=== PATIENT | male | born 1965 | race Caucasian/White ===

== ENCOUNTER 2019-12-22 03:28 | Inpatient (IN) ==
--- NOTE | 2019-12-22 03:39 | Emergency Department Note ---
ED Provider Note NAME: LUIS MYERS AGE: 54 SEX: M ARRIVES VIA: Walk-In INFORMANT: [Patient] ED PROVIDER(S): [Rosa M Joel DO] CHIEF COMPLAINT: [Vomiting and diarrhea] IMPRESSION: Acute kidney injury; vomiting and diarrhea PLAN: Disposition: Admitted to the hospital Condition: [Good] Outpatient prescription management: [none] MEDICAL DECISION MAKING: This is a 54-year-old male patient with a history of polycystic kidney disease who was evaluated in room B2 who presents to the emergency department complaini ng of vomiting and diarrhea. The patient had a sudden onset of the above and appears to be significantly dehydrated. He is receiving IV normal saline solution. He has a creatinine of 2.55. He believes that his normal creatinine is somewhere between 1.2-1.5. The patient was dry heaving and vomiting upon his initial presentation to the emergency department. He did have some chest discomfort with his excessive vomiting but that has since subsided. He did have some stool incontinence while here in the emergency department. The patient's symptoms started at 10 PM this evening. He described eating pierogies and drinking beer. There is no leukocytosis. I do believe the patient has signif icant dehydration as he also has an elevated H&H. Triage Nursing notes reviewed and agree with them. Vital Signs: reviewed and remarkable for hypertension. The patient has a history of polycystic kidney disease and suffers from hypertension. Patient was also dry heaving on presentation to the emergency department. Differential diagnosis: Foodborne illness, cardiac ischemia, STEMI, dehydration, renal insufficiency, hypertensive urgency, gastroenteritis, viral illness, ER treatment provided: IV normal saline; IV Zofran, IV labetalol, Diagnostics interpreted by me: ECG: Normal sinus rhythm at a rate of 85. No cardiac ischemia or ectopy Cardiac Monitoring: Normal sinus rhythm at a rate of 80 Laboratory studies: [See below] Imaging studies:None Consultation(s): Dr[facility] HPI: This is a 54-year-old male patient who presents to the emergency department complaining of vomiting and diarrhea. The patient developed those symptoms around 10 PM this evening. His first symptom was nausea and then vomiting. He developed some associated chest pain at that time. He then developed diarrhea and crampy abdominal pain. He then developed both vomiting and diarrhea at the same time. The patient admits that he ate some potato pierogies earlier in the evening along with a beer. He denies any known sick contacts. He does describe some chills. ROS: See above HPI for pertinent positives & negatives. A total of [10] systems reviewed and were otherwise negative. PAST MEDICAL HISTORY:Polycystic kidney disease and hypertension; Dominic -Parkinson-White with ablation PAST SURGICAL HISTORY:Multiple orthopedic surgeries including a right's shoulder surgery performed recently FAMILY HISTORY:[See Below] SOCIAL HISTORY:The patient is originally from [place] but lives in 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 Extraocular eye muscles are intact, and sclera are anicteric. Nose - moist nasal mucosa without discharge. Mouth - moist buccal mucosa. Oropharynx is nonerythematous and there is no tonsillar exudate or edema noted. Neck: Supple; no cervical lymphadenopathy or nuchal rigidity Heart: Regular rate and rhythm. There is a normal S1 and S2 with no murmurs, clicks, or gallops appreciated. Lungs: Clear to auscultation bilaterally with no wheezes, rales, or rhonchi. Abdomen: Soft, completely nontender, nondistended, with good bowel sounds. There are no palpable pulsatile masses or hepatosplenomegaly. There is no guarding, rigidity, or rebound noted. Extremities: No evidence of cyanosis, clubbing, or edema. There are easily palpable peripheral pulses. Skin: Cool and diaphoretic with good turgor and no rashes. ED COURSE: 0340: The patient was evaluated in room B2. A complete history and physical was performed. An order was placed for continuous cardiac monitoring. Patient was in a normal sinus rhythm at a rate of 86. An IV lock was initiated and labs were drawn as above. The patient was given 4 mg of IV Zofran. The patient was given 2 L of IV normal saline solution for obvious signs of dehydration. Patient was given 10 mg of IV labetalol for hypertension I rechecked the patient multiple times and he was able to drink clear liquids w ithout difficulty or further episodes of vomiting. I discussed the case with the [facility] Hospitalist and they will evaluate him for further management. Impression & Plan JANIA (acute kidney injury), Nausea vomiting and diarrhea, Hypertension Past Med/Surg History Social History (Updated 12/22/19 @ 05:57 by Jodee Araujo DO) Communication Ability: Effective Beliefs That Will Affect Care: None Current Living Situation: Spouse Feels Safe at Home: Yes Smoking Status: Never smoker Hx Alcohol Use: Yes Alcohol Intake Frequency: Holidays/Special Occasions Hx Substance Use: No Results & Data Vital Signs Vital Signs - 24 hr 12/22/19 03:32 12/22/19 03:50 12/22/19 03:55 Temperature 36.5 C Temperature Source Oral Pulse Rate 94 H Pulse Rate [Apical] 86 Pulse Rhythm [Apical] Regular Respiratory Rate 18 22 Respiratory Effort / Characteristics Non-Labored Spontaneous Non-Labored Respiratory Depth Normal Shallow Respiratory Pattern Blood Pressure 175/106 H Blood Pressure [Right Arm] 174/116 H Blood Pressure Mean 129 Blood Pressure Mean [Right Arm] 135 Pulse Oximetry 99 98 98 Oxygen Delivery Method Room Air Room Air Room Air Sepsis Recent Fever Within 48 Hours No Sepsis Action Taken by Nursing No Action Required 12/22/19 04:45 12/22/19 05:15 Temperature Temperature Source Pulse Rate Pulse Rate [Apical] 94 H 90 Pulse Rhythm [Apical] Regular Regular Respiratory Rate 16 16 Respiratory Effort / Characteristics Non-Labored Spontaneous Non-Labored Spontaneous Respiratory Depth Normal Normal Respiratory Pattern Regular Regular Blood Pressure Blood Pressure [Right Arm] 170/110 H 164/96 H Blood Pressure Mean Blood Pressure Mean [Right Arm] 130 118 Pulse Oximetry Oxygen Delivery Method Sepsis Recent Fever Within 48 Hours Sepsis Action Taken by Nursing Laboratory Data Result diagrams: 12/22/19 03:57 12/22/19 03:57 Lab Results 12/22/19 12/22/19 12/22/19 Range/Units 03:57 03:57 03:57 WBC 8.58 (4.8-10.8) K/uL RBC 6.44 H (4.7-6.1) M/uL Hgb 19.4 H (14.0-18.0) g/dL Hct 56.0 H (42-52) % MCV 87.0 (80-100) fL MCH 30.1 (25-34) pg MCHC 34.6 (32-36) g/dL RDW Std Deviation 45.1 (36.4-46.3) fL RDW Coeff of Rhina 14.2 (11.5-14.5) % Plt Count 204 (130-400) K/uL MPV 10.8 H (7.4-10.4) fL Immature Gran % (Auto) 0.2 % Neut % (Auto) 92.4 % Lymph % (Auto) 2.3 % Scott % (Auto) 3.4 % Eos % (Auto) 1.6 % Baso % (Auto) 0.1 % Immature Gran # (Auto) 0.02 (0.00-0.02) K/uL Neut # (Auto) 7.92 H (1.4-6.5) K/uL Lymph # (Auto) 0.20 L (1.2-3.4) K/uL [place] # (Auto) 0.29 (0.11-0.59) K/uL Eos # (Auto) 0.14 (0-0.5) K/uL Baso # (Auto) 0.01 (0-0.2) K/uL Sodium 140 (136-145) mmol/L Potassium 4.6 (3.5-5.1) mmol/L Chloride 110 H (98-107) mmol/L Carbon Dioxide 23 (21-32) mmol/L Anion Gap 7.0 (3-11) BUN 34 H (7-18) mg/dl Creatinine 2.55 H (0.6-1.4) mg/dl Est Cr Clr Drug Dosing 40.7 ml/min Est GFR ( Amer) 31.7 Est GFR (Non-Af Amer) 27.4 BUN/Creatinine Ratio 13.3 (10-20) Glucose 149 H (70-99) mg/dl Calcium 8.6 (8.5-10.1) mg/dl Phosphorus 2.1 L (2.5-4.9) mg/dl Magnesium (1.8-2.4) mg/dl Total Bilirubin 0.5 (0.2-1) mg/dl AST 31 (15-37) U/L ALT 36 (12-78) U/L Alkaline Phosphatase 93 (45-117) U/L Troponin I < 0.015 (0-0.045) ng/ml Total Protein 7.8 (6.4-8.2) gm/dl Albumin 3.7 (3.4-5.0) gm/dl Globulin 4.1 H (2.5-4.0) gm/dl Albumin/Globulin Ratio 0.9 (0.9-2) Lipase 291 (73-393) U/L Specimen Hemolysis Urine Color Urine Appearance (Clear) Urine pH (4.5-7.5) Ur Specific [place] (1.000-1.030) Urine Protein (Negative) Urine Glucose (UA) (Negative) Urine Ketones (Negative) Urine Blood (Negative) Urine Nitrite (Negative) Urine Bilirubin (Negative) Urine Urobilinogen (Negative) Ur Leukocyte Esterase (Negative) Urine WBC (Auto) (0-5) /hpf Urine RBC (Auto) (0-4) /hpf U Hyaline Cast (Auto) (0-5) /lpf U Epithel Cells (Auto) (0-5) /lpf Urine Bacteria (Auto) (Negative) 12/22/19 Range/Units 04:40 WBC (4.8-10.8) K/uL RBC (4.7-6.1) M/uL Hgb (14.0-18.0) g/dL Hct (42-52) % MCV (80-100) fL MCH (25-34) pg MCHC (32-36) g/dL RDW Std Deviation (36.4-46.3) fL RDW Coeff of Rhina (11.5-14.5) % Plt Count (130-400) K/uL MPV (7.4-10.4) fL Immature Gran % (Auto) % Neut % (Auto) % Lymph % (Auto) % Scott % (Auto) % Eos % (Auto) % Baso % (Auto) % Immature Gran # (Auto) (0.00-0.02) K/uL Neut # (Auto) (1.4-6.5) K/uL Lymph # (Auto) (1.2-3.4) K/uL [place] # (Auto) (0.11-0.59) K/uL Eos # (Auto) (0-0.5) K/uL Baso # (Auto) (0-0.2) K/uL Sodium (136-145) mmol/L Potassium (3.5-5.1) mmol/L Chloride (98-107) mmol/L Carbon Dioxide (21-32) mmol/L Anion Gap (3-11) BUN (7-18) mg/dl Creatinine (0.6-1.4) mg/dl Est Cr Clr Drug Dosing ml/min Est GFR ( Amer) Est GFR (Non-Af Amer) BUN/Creatinine Ratio (10-20) Glucose (70-99) mg/dl Calcium (8.5-10.1) mg/dl Phosphorus (2.5-4.9) mg/dl Magnesium (1.8-2.4) mg/dl Total Bilirubin (0.2-1) mg/dl AST (15-37) U/L ALT (12-78) U/L Alkaline Phosphatase (45-117) U/L Troponin I (0-0.045) ng/ml Total Protein (6.4-8.2) gm/dl Albumin (3.4-5.0) gm/dl Globulin (2.5-4.0) gm/dl Albumin/Globulin Ratio (0.9-2) Lipase (73-393) U/L Specimen Hemolysis Urine Color Yellow Urine Appearance Clear (Clear) Urine pH 5.5 (4.5-7.5) Ur Specific [place] 1.017 (1.000-1.030) Urine Protein 3+ H (Negative) Urine Glucose (UA) Negative (Negative) Urine Ketones Trace H (Negative) Urine Blood Trace H (Negative) Urine Nitrite Negative (Negative) Urine Bilirubin Negative (Negative) Urine Urobilinogen Negative (Negative) Ur Leukocyte Esterase Negative (Negative) Urine WBC (Auto) 0 (0-5) /hpf Urine RBC (Auto) 0-4 (0-4) /hpf U Hyaline Cast (Auto) 1-5 (0-5) /lpf U Epithel Cells (Auto) 0-5 (0-5) /lpf Urine Bacteria (Auto) Negative (Negative) Administered Medications Sodium Chloride (Nss 1000ml) 1,000 mls @ 125 mls/hr IV .Q8H MICHELLE Stop: 12/22/19 14:38 Last Admin: 12/22/19 06:55 Dose: 125 mls/hr Documented by: [id number] Labetalol HCl (Normodyne) 300 mg PO BID MICHELLE Stop: 01/21/20 08:59 Last Admin: 12/22/19 07:26 Dose: 300 mg Documented by: [id number] Nifedipine (Procardia Xl) 60 mg PO BID MICHELLE Stop: 01/21/20 08:59 Last Admin: 12/22/19 07:26 Dose: 60 mg Documented by: [id number] Ondansetron HCl (Zofran) 4 mg IV Q6H PRN PRN Reason: Nausea Stop: 01/21/20 06:38 Last Admin: 12/22/19 08:16 Dose: 4 mg Documented by: [id number] Discontinued Medications Sodium Chloride (Nss 1000ml) 1,000 mls @ 999 mls/hr IV .Q1H1M MICHELLE Stop: 12/22/19 05:00 Last Infusion: 12/22/19 05:14 Dose: 0 mls/hr Documented by: [id number] Admin: 12/22/19 03:57 Dose: 999 mls/hr Documented by: [id number] Sodium Chloride (Nss 1000ml) 1,000 mls @ 999 mls/hr IV .Q1H1M ONE Stop: 12/22/19 05:55 Last Admin: 12/22/19 05:13 Dose: 999 mls/hr Documented by: [id number] Labetalol HCl (Normodyne) 10 mg IV NOW STA Stop: 12/22/19 04:57 Last Admin: 12/22/19 05:13 Dose: 10 mg Documented by: [id number] Cosigned by: [id number] Ondansetron HCl (Zofran) Confirm Administered Dose 4 mg .ROUTE .STK-MED ONE Stop: 12/22/19 03:45 Last Admin: 12/22/19 03:45 Dose: 4 mg Documented by: [id number] Ondansetron HCl (Zofran) 4 mg IV NOW STA Stop: 12/22/19 03:53 Last Admin: 12/22/19 03:57 Dose: Not Given Documented by: [id number] Discharge Plan Visit Data *Final* Discharge Date/Time: 12/22/19 06:20 Chief Complaint: Vomiting Stated Complaint: VOMITING,DIZZY,SOB ED Provider: Rosa M Joel Discharge Problem: JANIA (acute kidney injury), Nausea vomiting and diarrhea, Hypertension Patient Disposition: Admitted As Inpatient Discharge Instructions Interventions: ED Discharge Assessment Last Done: 12/22/19 06:20
[2019-12-22] MEDS ORDERED: ONDANSETRON INJ 2 MG/ML 2 ML VIAL ONE (03:44)
[2019-12-22] MEDS ORDERED: ONDANSETRON INJ 2 MG/ML 2 ML VIAL IV STA (03:52)
[2019-12-22] MEDS ORDERED: SODIUM CHLORIDE 0.9% 1000ML 1,000 ML IV SCH ×2 (04:00→06:39)
[2019-12-22 04:10] LABS: Basophils # (auto) 0.01 K/uL (0-0.2); Basophils % (auto) 0.1 %; Eosinophils # (auto) 0.14 K/uL (0-0.5); Eosinophils % (auto) 1.6 %; Hemoglobin 19.4 g/dL (14.0-18.0); Immature Granulocytes # (auto) 0.02 K/uL (0.00-0.02); Immature Granulocytes % (auto) 0.2 %; Lymphocytes % (auto) 2.3 %; Mean Corpuscular Hemoglobin 30.1 pg (25-34); Mean Platelet Volume 10.8 fL (7.4-10.4); Monocytes # (auto) 0.29 K/uL (0.11-0.59); Monocytes % (auto) 3.4 %; Neutrophils # (auto) 7.92 K/uL (1.4-6.5); Neutrophils % (auto) 92.4 %; Platelet Count 204 K/uL (130-400); RDW Coefficient of Variation 14.2 % (11.5-14.5); RDW Standard Deviation 45.1 fL (36.4-46.3); Red Blood Count 6.44 M/uL (4.7-6.1); White Blood Count 8.58 K/uL (4.8-10.8)
[2019-12-22 04:33] LABS: Alanine Aminotransferase 36 U/L (12-78); Albumin Level 3.7 gm/dl (3.4-5.0); Aspartate Aminotransferase 31 U/L (15-37); BUN Creatinine Ratio 13.3 (10-20); Blood Urea Nitrogen 34 mg/dl (7-18); Calcium 8.6 mg/dl (8.5-10.1); Carbon Dioxide 23 mmol/L (21-32); Chloride 110 mmol/L (98-107); Creatinine Clr Calc Pharmacy 40.7 ml/min; Est GFR (African American) 31.7; Est GFR (Non-African American) 27.4; Glucose 149 mg/dl (70-99); Lipase 291 U/L (73-393); Potassium 4.6 mmol/L (3.5-5.1); Sodium 140 mmol/L (136-145)
[2019-12-22 04:37] LABS: Mean Corpuscular Hgb Conc 34.6 g/dL (32-36)
[2019-12-22 04:38] LABS: Albumin Globulin Ratio 0.9 (0.9-2); Alkaline Phosphatase 93 U/L (45-117); Bilirubin,Total 0.5 mg/dl (0.2-1); Globulin 4.1 gm/dl (2.5-4.0); Total Protein 7.8 gm/dl (6.4-8.2); Troponin I < 0.015 ng/ml (0-0.045)
[2019-12-22] MEDS ORDERED: SODIUM CHLORIDE 0.9% 1000ML 1,000 ML IV ONE (04:55)
[2019-12-22] MEDS ORDERED: LABETALOL HCL IV 5 MG/ML 20ML IV STA (04:56)
[2019-12-22 05:01] LABS: Appearance Urine Clear (Clear); Bacteria Urine Automated Negative (Negative); Bilirubin Urine Negative (Negative); Blood Urine Trace (Negative); Color Urine Yellow; Epithelial Cell Urine Auto 0-5 /lpf (0-5); Glucose Urine UA Negative (Negative); Ketones Urine Trace (Negative); Leukocyte Esterase Urine Negative (Negative); Nitrite Urine Negative (Negative); Protein Urine 3+ (Negative); RBC Urine Automated 0-4 /hpf (0-4); Specific Gravity Urine 1.017 (1.000-1.030); Urobilinogen Urine Negative (Negative); WBC Urine Automated 0 /hpf (0-5); pH Urine 5.5 (4.5-7.5)
--- NOTE | 2019-12-22 06:08 | History & Physical Report ---
Date of Service December 22, 2019 Assessment & Plan (1) Nausea vomiting and diarrhea: 54yo C male with history of HTN, PCKD, baseline Cr of 1 - 1.2 presents with JANIA in setting of acute volume loss from nausea/vomiting and diarrhea. Nausea/vomiting and diarrhea have resolved. Patient feels much improved after Zofran and IVF. Ddx to include food borne illness vs viral gastroenteritis -Admit to medical floor -Zofran as needed for nausea -Continue IVF - NSS at 125mL/hr x 1 additional liter (total of 3L) Present on Admission?: Yes (2) JANIA (acute kidney injury): Elevated BUN = 34, Cr = 2.55. No prior records. Patient reports baseline Cr to be approximately 1 - 1.2. As above, suspect prerenal azotemia in setting of acute volume loss from vomiting/diarrhea. -IVF as above -Repeat chemistry panel at 13:00 to monitor renal function and electrolytes -Monitor UOP -Avoid nephrotoxic agents -Renal dosing where appropriate -Day team may wish to touch base with patient's Clinical Care Coordinator Present on Admission?: Yes (3) Hypertension: Blood pressure elevated on arrival. He was given IV Labetalol with reasonable improvement. Presently 164/96 -Continue Labetalol 300mg po BID -Continue Nifedipine 60mg po q daily -Continue to monitor BP Present on Admission?: Yes (4) Polycystic kidney disease: Chronic. Patient follows with Nephrology -Continue Tolvaptan -Continue to monitor BUN/Cr/electrolytes and UOP F/E/N - NSS at 125mL/hr x 1 liter, monitor electrolytes and replete as needed, regular diet as tolerated Ppx - SCDs to bilateral LE Code - Full Dispo - Admit to medical floor Present on Admission?: Yes History of Present Illness Chief Complaint: nausea/vomiting/diarrhea Primary Care Provider: NO PCP Mr. Segundo Pruett is a pleasant 54yo male with history of HTN and PCKD presenting with elevated BUN/Cr. Patient reports having dinner last evening and going to bed around 21:30. Shortly after going to bed he developed nausea with multiple episodes of non-bloody emesis. He also had multiple episodes of non- bloody diarrhea. He had some mild chest discomfort during vomiting which has since resolved. Patient's nausea persisted throughout the night which prompted him to come to the ER. No additional complaints at this time, specifically no current CP/palpitations/SOB/abdominal pain. Nausea has resolved. On arrival to the ER he was found to be afebrile, hypertensive at 175/106, breathing comfortably on room air. Intake labs revealed elevated BUN of 34 and Cr of 2.55. He reports his baseline Cr to be 1 - 1.2. He follows with a Clinical Care Coordinator in [place]. ER Course: Labetalol 10mg IV x 1, Zofran 4mg IV x 1, NSS x 2 liters Allergies Allergy/AdvReac Type Severity Reaction Status Date / Time No Known Allergies Allergy Unverified 12/22/19 04:06 Home Medications Home Medications Medication Instructions Recorded Confirmed Type dexlansoprazole [Dexilant] 30 mg PO DAILY 12/22/19 12/22/19 History labetalol 300 mg PO BID 12/22/19 12/22/19 History nifedipine 60 mg PO AMPM 12/22/19 12/22/19 History tolvaptan [Jynarque] 15 mg PO QAM 12/22/19 12/22/19 History tolvaptan [Jynarque] 30 mg PO QAM 12/22/19 12/22/19 History tolvaptan [Jynarque] 50 mg PO .Q AFTERNOON 12/22/19 12/22/19 History Past Med/Surg History Medical History (Updated 12/22/19 @ 06:06 by Jodee Araujo DO) Hypertension Polycystic kidney disease Surgical History (Updated 12/22/19 @ 05:56 by Jodee Araujo DO) History of left hip replacement History of shoulder surgery Status post ablation operation for arrhythmia Family History (Updated 12/22/19 @ 05:56 by Jodee Araujo DO) Other Hypertension Polycystic kidney disease Social History (Updated 12/22/19 @ 05:57 by Jodee Araujo DO) Feels Safe at Home: Yes Smoking Status: Never smoker Hx Alcohol Use: Yes Alcohol Intake Frequency: Holidays/Special Occasions Hx Substance Use: No Review of Systems Review of Systems: All systems reviewed & are unremarkable except as noted in HPI & below Physical Exam Physical Exam: General: patient resting comfortably, NAD, non-toxic in appearance, AA&O x 4 Skin: warm, dry, intact, no rashes or lesions HEENT: NC/AT, PERRL, EOMI, anicteric sclera, conjunctiva without injection, external ear normal to inspection and nontender, nares patent, slightly dry mucus membranes, dentition intact, no oropharyngeal lesions, neck supple, trachea midline, no LAD, no thyromegaly, no JVD Heart: +S1/S2, regular, no m/r/g Lungs: equal air entry bilaterally, no rales/rhonchi/wheezes Abd: +BS, soft, NT/ND, no masses/organomegaly/ascites Ext: warm, 2+ pulses in UE/LE bilaterally, no clubbing/cyanosis, 2+ pitting edema of bilateral LEs at ankles Neuro: nonfocal, patient AA&O x 4, speech intact, no facial droop, moving all extremities on command with equal strength 5/5 Results & Data Vital Signs (Past 12 Hours) Vital Signs Temp Pulse Pulse Resp BP BP Pulse Ox 12/22/19 05:15 90 16 164/96 H 12/22/19 04:45 94 H 16 170/110 H 12/22/19 03:55 98 12/22/19 03:50 86 22 174/116 H 98 12/22/19 03:32 36.5 C 94 H 18 175/106 H 99 Laboratory Results Lab Results 12/22/19 12/22/19 12/22/19 Range/Units 03:57 03:57 04:40 WBC 8.58 (4.8-10.8) K/uL RBC 6.44 H (4.7-6.1) M/uL Hgb 19.4 H (14.0-18.0) g/dL Hct 56.0 H (42-52) % MCV 87.0 (80-100) fL MCH 30.1 (25-34) pg MCHC 34.6 (32-36) g/dL RDW Std Deviation 45.1 (36.4-46.3) fL RDW Coeff of Rhina 14.2 (11.5-14.5) % Plt Count 204 (130-400) K/uL MPV 10.8 H (7.4-10.4) fL Immature Gran % (Auto) 0.2 % Neut % (Auto) 92.4 % Lymph % (Auto) 2.3 % [place] % (Auto) 3.4 % Eos % (Auto) 1.6 % Baso % (Auto) 0.1 % Immature Gran # (Auto) 0.02 (0.00-0.02) K/uL Neut # (Auto) 7.92 H (1.4-6.5) K/uL Lymph # (Auto) 0.20 L (1.2-3.4) K/uL [place] # (Auto) 0.29 (0.11-0.59) K/uL Eos # (Auto) 0.14 (0-0.5) K/uL Baso # (Auto) 0.01 (0-0.2) K/uL Sodium 140 (136-145) mmol/L Potassium 4.6 (3.5-5.1) mmol/L Chloride 110 H (98-107) mmol/L Carbon Dioxide 23 (21-32) mmol/L Anion Gap 7.0 (3-11) BUN 34 H (7-18) mg/dl Creatinine 2.55 H (0.6-1.4) mg/dl Est Cr Clr Drug Dosing 40.7 ml/min Est GFR ( Amer) 31.7 Est GFR (Non-Af Amer) 27.4 BUN/Creatinine Ratio 13.3 (10-20) Glucose 149 H (70-99) mg/dl Calcium 8.6 (8.5-10.1) mg/dl Total Bilirubin 0.5 (0.2-1) mg/dl AST 31 (15-37) U/L ALT 36 (12-78) U/L Alkaline Phosphatase 93 (45-117) U/L Troponin I < 0.015 (0-0.045) ng/ml Total Protein 7.8 (6.4-8.2) gm/dl Albumin 3.7 (3.4-5.0) gm/dl Globulin 4.1 H (2.5-4.0) gm/dl Albumin/Globulin Ratio 0.9 (0.9-2) Lipase 291 (73-393) U/L Specimen Hemolysis Urine Color Yellow Urine Appearance Clear (Clear) Urine pH 5.5 (4.5-7.5) Ur Specific [place] 1.017 (1.000-1.030) Urine Protein 3+ H (Negative) Urine Glucose (UA) Negative (Negative) Urine Ketones Trace H (Negative) Urine Blood Trace H (Negative) Urine Nitrite Negative (Negative) Urine Bilirubin Negative (Negative) Urine Urobilinogen Negative (Negative) Ur Leukocyte Esterase Negative (Negative) Urine WBC (Auto) 0 (0-5) /hpf Urine RBC (Auto) 0-4 (0-4) /hpf U Hyaline Cast (Auto) 1-5 (0-5) /lpf U Epithel Cells (Auto) 0-5 (0-5) /lpf Urine Bacteria (Auto) Negative (Negative) ECG Additional Comments: The study shows NSR at 85bpm, normal axis, CO=050, OXV=230, QSp=982, no acute ischemic changes Code Status & VTE Plan Code Status FULL VTE Prophylaxis Plan VTE Prophylaxis will be ordered: Yes PG Care Time/CCT Total # of Minutes Spent Total Time Spent with Patient: Total time spent is greater than 50% in coordination of care (as documented) at patient's floor/unit and/or counseling patient: Coding Level of Care Code 24745 Initial Inpt Care Lvl 3 Diagnoses Nausea vomiting and diarrhea R11.2; R19.7 JANIA (acute kidney injury) N17.9 Hypertension I10 Hypertension type: essential hypertension Polycystic kidney disease Q61.3 (1) Hypertension Hypertension type: essential hypertension Qualified Code(s): I10 - Essential (primary) hypertension
[2019-12-22] MEDS ORDERED: ONDANSETRON INJ 2 MG/ML 2 ML VIAL IV PRN (06:39)
[2019-12-22] MEDS ORDERED: ACETAMINOPHEN 325 MG TAB PO PRN (06:39)
[2019-12-22 08:00] LABS: Phosphorus 2.1 mg/dl (2.5-4.9)
[2019-12-22] MEDS ORDERED: TOLVAPTAN 15 MG TABLET PO SCH ×3 (09:00→16:00)
[2019-12-22] MEDS ORDERED: LABETALOL HCL 300 MG TAB PO SCH (09:00)
[2019-12-22] MEDS ORDERED: NIFEdipine EXTENDED REL 30 MG TABCR PO SCH (09:00)
[2019-12-22] MEDS: PANTOprazole 40 MG TAB PO SCH (09:04)
[2019-12-22] MEDS ORDERED: SODIUM CHLORIDE 0.65% NA SOLN 45 ML (OCEAN) PRN (11:05)
[2019-12-22] MEDS: FLUTICASONE PROPIONATE NA SPR 16 GM BTL SCH (11:37)
--- NOTE | 2019-12-22 12:24 | XRay Report ---
AP CHEST WITH ABDOMINAL SERIES CLINICAL HISTORY: Generalized abdominal pain. Nausea, vomiting, and diarrhea. FINDINGS: 2 AP, portable, upright chest radiographs are obtained. No prior studies are available for comparison at the time of dictation. The heart is top normal for projection. There is elevation of the right h emidiaphragm with associated right basilar atelectasis. No pneumothorax is seen. The bony thorax is g rossly intact. Supine and erect abdominal radiographs are obtained. No prior studies are available for comparison at the time of dictation. There is a nonobstructed abdominal bowel gas pattern. No evidence of intrape ritoneal free air is seen. There are no abnormal abdominal calcifications. The lumbosacral spine and bony pelvis appear intact. A left hip arthroplasty is in place. IMPRESSION: 1. No active disease in the chest. 2. Nonobstructed abdominal bowel gas pattern. ACT 112: Negative or not required by law. Electronically signed by: Blane Chiang M.D. 12/22/2019 12:22 PM
[2019-12-22 13:06] LABS: Basophils # (auto) 0.01 K/uL (0-0.2); Basophils % (auto) 0.2 %; Eosinophils # (auto) 0.02 K/uL (0-0.5); Eosinophils % (auto) 0.3 %; Hematocrit (blood only) 47.9 % (42-52); Hemoglobin 16.1 g/dL (14.0-18.0); Immature Granulocytes # (auto) 0.01 K/uL (0.00-0.02); Immature Granulocytes % (auto) 0.2 %; Lymphocytes % (auto) 4.6 %; Mean Corpuscular Hemoglobin 29.5 pg (25-34); Mean Corpuscular Hgb Conc 33.6 g/dL (32-36); Mean Corpuscular Volume 87.9 fL (80-100); Mean Platelet Volume 10.9 fL (7.4-10.4); Monocytes # (auto) 0.17 K/uL (0.11-0.59); Monocytes % (auto) 2.6 %; Neutrophils # (auto) 5.95 K/uL (1.4-6.5); Neutrophils % (auto) 92.1 %; Platelet Count 171 K/uL (130-400); RDW Coefficient of Variation 14.5 % (11.5-14.5); RDW Standard Deviation 46.4 fL (36.4-46.3); Red Blood Count 5.45 M/uL (4.7-6.1); White Blood Count 6.46 K/uL (4.8-10.8)
[2019-12-22 13:25] LABS: BUN Creatinine Ratio 14.6 (10-20); Calcium 7.3 mg/dl (8.5-10.1); Creatinine Clr Calc Pharmacy 46.4 ml/min; Est GFR (African American) 37.3; Est GFR (Non-African American) 32.2; Potassium 4.2 mmol/L (3.5-5.1)
[2019-12-22 13:26] LABS: Phosphorus 2.7 mg/dl (2.5-4.9); Troponin I < 0.015 ng/ml (0-0.045)
[2019-12-22] MEDS: LABETALOL HCL 300 MG TAB PO SCH ×2 (13:47→21:11)
[2019-12-22] MEDS ORDERED: TOLVAPTAN PO SCH (14:00)
[2019-12-22] MEDS ORDERED: CHLORASEPTIC 1.4% SOLN 180 ML BTL MT PRN (16:21)
--- NOTE | 2019-12-22 16:33 | Electrocardiogram Report ---
Test Reason : Blood Pressure : / mmHG Vent. Rate : 085 BPM Atrial Rate : 085 BPM P-R Int : 166 ms QRS Dur : 102 ms QT Int : 356 ms P-R-T Axes : 057 081 024 degrees QTc Int : 423 ms Normal sinus rhythm Possible Left atrial enlargement Borderline ECG No previous ECGs available Confirmed by Petey Carvalho ([id number]) on 12/22/2019 4:33:06 PM Referred By: REFERRED SELF Confirmed By:Petey Carvalho
[2019-12-22] MEDS: SODIUM CHLORIDE 0.9% 1000ML 1,000 ML IV SCH ×2 (17:01→23:01)
--- NOTE | 2019-12-22 19:55 | History & Physical Bridge Note ---
Date of Service December 22, 2019 History & Physical Bridge Note I have examined the patient, reviewed the History & Physical and in the interval since the performance of the History & Physical I have noted the following changes of clinical significance: Patient was seen twice throughout the day. The first time, he was having complaints of copious diarrhea, nonbloody. No further vomiting and he was tolerating small amounts of clear liquids. He previously had had some right- sided abdominal pain which he thought was from all the retching from the previous nights vomiting, but this was improving. He is making plenty of urine. He has a hoarse voice from previous vomiting. No shortness of breath and chest pain is resolved. He asked that I call his materials mgmt tech and I did at [facility], Dr. Walden, who stated that his baseline creatinine is 1.88-2.1, with the most recent being 1.88 on 12/10. She reports that she would like us to hold his tolvaptan while he is here. He also was to start irbesartan but had not yet and this would be held regardless. Blood pressures better controlled Rest of vitals are reviewed Gen: AAOx3, NAD HEENT: Anicteric sclerae, EOMI, mucous membranes moist CV: RRR no mgr nl S1S2 Pulm: CTAB no wcr Abd: +BS soft NT ND no masses or hernias Ext: No edema, 2+ DP pulses Skin: No rashes, warm/dry Neuro: Full strength throughout Creatinine improving down to 2.23 on repeat check, troponin negative x2, C. difficile negative, stool culture pending Hemoglobin down to 16.1 from 19.4 after IV fluid hydration Abdominal series personally reviewed the images-no evidence of obstruction or free air 54-year-old male with history of PCKD with proteinuria, CKD stage III, HTN, here with gastroenteritis possibly foodborne illness versus viral and acute kidney injury Renal function is improving with IV fluids -Continue IV fluids with normal saline at 125 mL's per hour -Hold tolvaptan -Changed new dosing of labetalol to 300 mg p.o. 3 times daily as per his materials mgmt tech wishes for uncontrolled hypertension, and decreased nifedipine XL to 30 mg once daily-this was done for previous complaint of ankle edema on a higher dose -Holding irbesartan which he had not yet started anyway -Follow-up on stool culture, avoid antibiotics at this time -Continue supportive care -Follow BMP in the morning If creatinine continues to trend downward tomorrow, will be stable for discharge in the morning
[2019-12-23 06:01] LABS: Basophils # (auto) 0.01 K/uL (0-0.2); Basophils % (auto) 0.3 %; Eosinophils # (auto) 0.08 K/uL (0-0.5); Eosinophils % (auto) 2.5 %; Hematocrit (blood only) 45.1 % (42-52); Immature Granulocytes # (auto) 0.01 K/uL (0.00-0.02); Immature Granulocytes % (auto) 0.3 %; Lymphocytes # (auto) 0.71 K/uL (1.2-3.4); Mean Corpuscular Hemoglobin 29.2 pg (25-34); Mean Corpuscular Hgb Conc 33.3 g/dL (32-36); Mean Corpuscular Volume 87.9 fL (80-100); Mean Platelet Volume 10.8 fL (7.4-10.4); Monocytes # (auto) 0.25 K/uL (0.11-0.59); Monocytes % (auto) 7.8 %; Neutrophils # (auto) 2.16 K/uL (1.4-6.5); Neutrophils % (auto) 67.1 %; Platelet Count 166 K/uL (130-400); RDW Coefficient of Variation 14.7 % (11.5-14.5); RDW Standard Deviation 47.4 fL (36.4-46.3); Red Blood Count 5.13 M/uL (4.7-6.1); White Blood Count 3.22 K/uL (4.8-10.8)
[2019-12-23] MEDS: SODIUM CHLORIDE 0.9% 1000ML 1,000 ML IV SCH (06:38)
[2019-12-23 06:39] LABS: BUN Creatinine Ratio 10.5 (10-20); Calcium 7.6 mg/dl (8.5-10.1); Creatinine Clr Calc Pharmacy 52.5 ml/min; Est GFR (African American) 43.4; Est GFR (Non-African American) 37.4; Magnesium 1.9 mg/dl (1.8-2.4); Potassium 3.9 mmol/L (3.5-5.1)
--- NOTE | 2019-12-23 07:37 | Discharge Summary ---
Date of Service December 23, 2019 Admission HPI Per Admitting Provider Mr. Segundo Pruett is a pleasant 54yo male with history of HTN and PCKD presenting with elevated BUN/Cr. Patient reports having dinner last evening and going to bed around 21:30. Shortly after going to bed he developed nausea with multiple episodes of non-bloody emesis. He also had multiple episodes of non- bloody diarrhea. He had some mild chest discomfort during vomiting which has since resolved. Patient's nausea persisted throughout the night which prompted him to come to the ER. No additional complaints at this time, specifically no current CP/palpitations/SOB/abdominal pain. Nausea has resolved. On arrival to the ER he was found to be afebrile, hypertensive at 175/106, breathing comfortably on room air. Intake labs revealed elevated BUN of 34 and Cr of 2.55. He reports his baseline Cr to be 1 - 1.2. He follows with a Ceramics Teacher in [place]. ER Course: Labetalol 10mg IV x 1, Zofran 4mg IV x 1, NSS x 2 liters Principal Diagnosis Acute gastroenteritis, likely food-borne Discharge Exam Constitutional WD/WN, vitals as above Eyes + anicteric sclerae ENMT Ears: no hearing impairment and no external ear abnormality Nose: no external nose abnormality Neck trachea midline, no thyromegaly Respiratory normal respiratory effort, lungs clear to auscultation Cardiovascular RRR, no murmur, no edema Chest (Breasts) Chest: normal inspection of chest Gastrointestinal (Abdomen) normal bowel sounds, soft, nontender, no hepatosplenomegaly Musculoskeletal Extremities: extremities normal to inspection; no cyanosis and no clubbing Skin no rashes, warm and dry Neurologic moves all extremities and awake; no focal motor deficits Psychiatric A+Ox3, euthymic affect Lymphatic no lymphedema Discharge Data Allergies Allergy/AdvReac Type Severity Reaction Status Date / Time No Known Allergies Allergy Unverified 12/22/19 04:06 Consultations 12/22/19 05:01 ED Decision to Admit Stat Ordered Studies CXR/Abd xray Hospital Course (1) Nausea vomiting and diarrhea: This pt is a 54yo male with history of HTN, PCKD, 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 This commenced shortly after eating cheese pierogies from a restaurant at his hotel. His N/V was pretty much resolved by the time of admission and he then was having complaints of copious diarrhea, nonbloody. He had some right-sided abdominal pain which he thought was from all the wretching from the previous night's vomiting, but this was improving. He is making plenty of urine. He has a hoarse voice from previous vomiting. No shortness of breath and chest pain from vomiting is resolved. He was given IVF hydration with NS and his diarrhea was resolved by hospital day #2. Stool culture was sent and was pending at time of discharge. C. diff toxin sent and was negative Abd/CXR was negative for obstruction or free air. Hemoglobin down to 15 from 19.4 after IV fluid hydration (hemoconcentrated) His renal failure improved back to his baseline and he was tolerating a regular diet prior to discharge. Greenhouse Assistant was 1.97 down from peak of 2.55 on admission. Other electrolytes were acceptable as well. He asked that I call his customer experience analyst and I did at [facility], Dr. Walden, who stated that his baseline creatinine is 1.88-2.1, with the most recent being 1.88 on 12/10. She reports that she would like us to hold his tolvaptan while he is here and for a few more days after discharge. He also was to start irbesartan ust prior to discharge but had not yet begun. Stable for discharge (2) JANIA (acute kidney injury): Greenhouse Assistant 2.55 on admission as above, BUN elevated in the 30s All improved with IVF hydration, prerenal JANIA from GI losses -Held irbesartan which he had not yet started anyway--> can start after discharge -follow labs q2 weeks as he normally does with his Ceramics Teacher (3) Hypertension: Blood pressure elevated on arrival. He was given IV Labetalol with reasonable improvement. BPs now normal -Continue Labetalol 300mg po TID -Continue Nifedipine XL 30mg po q daily -to start irbesartan 75mg daily after discharge (4) Polycystic kidney disease: Chronic. Patient follows with Nephrology -hold Tolvaptan due t acute illness and dehydration-can restart on Wednesday after discharge With proteinuria which is at his baseline as per my discussion with his Ceramics Teacher, Paul Walden Ppx - SCDs to bilateral LE Code - Full Dispo - stable for discharge to home Total Time Total Time Spent Total Time Spent (In Minutes): 35 min Total Time Includes: Examination of the Patient, Discharge Planning and Medication Reconciliation Discharge Plan Discharge Items Patient Disposition: Home - Self-Care Reason For Visit: JANIA Discharge Diagnosis: Acute kidney injury, gastroenteritis Condition on Discharge: Good Activity: Resume your previous activity Non-emergency contact: Primary Care Provider and Ceramics Teacher Call non-emergency contact if: you have any medication questions and your symptoms worsen Follow-up/Referrals: PCP,NO [Primary Care Provider] - Diet: Heart Healthy Addtl Attending Provider Instructions: Please continue to drink plenty of fluids to stay hydrated. Your primary care physician can follow-up on the results of the stool culture after discharge by contacting us here at [facility] at [phone]. It is okay to start the irbesartan as prescribed on the morning of 12/24/2019. Dr. Walden wanted you to wait until 12/24/2021 begin your tolvaptan. Please follow-up with your customer experience analyst and your primary care physician within 2 weeks. It has been a pleasure taking care of you! -Rosanne Cotton M.D. Pending Studies at Discharge: Yes (Stool culture, Hepatitis C screening) Stand-Alone Forms: My [facility] Medications and DC Order Prescriptions: New fluticasone propionate 50 mcg/actuation [place],Suspension 2 spray NA DAILY Qty: 18.2 RF: 0 Sore Throat (phenol) 1.4 % Aerosol,[place] 3 sprays [place] PRN PRN (Reason: sore throat) Qty: 177 RF: 0 sodium chloride [Saline Mist] 0.65 % Aerosol,[place] 3 spray NA Q2H PRN (Reason: nasal congestion) Qty: 30 RF: 0 Continued nifedipine 30 mg Tablet Extended Release 30 mg PO QAM RF: 0 labetalol 300 mg Tablet 300 mg PO TID RF: 0 Dexilant 30 mg Capsule,Biphase Delayed Releas 30 mg PO DAILY RF: 0 irbesartan 75 mg tablet 75 mg PO DAILY RF: 0 tolvaptan 45 mg (AM)/ 15 mg (PM) Tablets, Sequential 1 ea PO BID Qty: 0 RF: 0 Discharge Orders: Discharge Order (Routine); Ordered 03/14/20 Ordered By: Rosanne Cotton Admission Data Admit Date/Time: 12/22/19 05:46 Attending Provider: Rosanne Cotton Admit Provider: Jodee Araujo Primary Care Provider: PCP,NO Other Providers: Jodee Araujo Coding Level of Care Code D/C Day Management >30 mins Diagnoses Nausea vomiting and diarrhea R11.2; R19.7 JANIA (acute kidney injury) N17.9 Hypertension I10 Polycystic kidney disease Q61.3
[2019-12-23] MEDS: FLUTICASONE PROPIONATE NA SPR 16 GM BTL SCH (08:27)
[2019-12-23] MEDS: LABETALOL HCL 300 MG TAB PO SCH (08:27)
[2019-12-23] MEDS: PANTOprazole 40 MG TAB PO SCH (08:28)
[2019-12-23] MEDS ORDERED: NIFEdipine EXTENDED REL 30 MG TABCR PO SCH (09:00)
== END 2019-12-23 09:05 | disposition home or self-care (01) | DRG 392 ==
LOC: ED 03:28 → SUATTDRO 05:46 → 3E 05:46